=== PATIENT | female | born 1990 | race American Indian/Alaskan Native ===

== ENCOUNTER 2017-09-21 18:23 | Emergency (ER) | payer SELFPAY ==
[2017-09-21] MEDS ORDERED: NACL 0.9% 1000 ML 1,000 ML IV ONE (19:27)
[2017-09-21] MEDS ORDERED: COMPAZINE IV ONE (19:28)
[2017-09-21 19:33] LABS: Basophils # (Auto) 0.1 K/mm3 (0.0-0.1); Basophils % (Auto) 0.5 % (0.0-1.8); Eosinophils # (Auto) 0.1 K/mm3 (0.0-0.4); Eosinophils % (Auto) 0.5 % (0.0-4.3); Hematocrit 41.9 % (30.3-42.9); Hemoglobin 13.2 gm/dl (10.1-14.3); Lymphocytes % (Auto) 14.1 % (13.4-35.0); Mean Corpuscular HGB Conc 32 % (30-34); Mean Corpuscular Volume 76 fl (79-97); Monocytes # (Auto) 0.7 K/mm3 (0.0-0.8); Monocytes % (Auto) 4.8 % (0.0-7.3); Platelet Count 172 K/mm3 (140-440); Red Blood Count 5.53 M/mm3 (3.65-5.03); Red Cell Distribution Width 16.5 % (13.2-15.2)
[2017-09-21 19:34] LABS: Mean Corpuscular Hemoglobin 24 pg (28-32)
[2017-09-21 19:48] LABS: BUN/Creatinine Ratio 12; Blood Urea Nitrogen 11 mg/dL (7-17); Calcium 8.2 mg/dL (8.4-10.2); Hemolysis Index 3
--- NOTE | 2017-09-21 20:08 | Emergency Department Report ---
ED Syncope HPI - General Chief Complaint: Dizziness Stated Complaint: SYNCOPE Time Seen by Provider: 09/21/17 19:18 - History of Present Illness Initial Comments: Patient woke up this morning feeling like her normal self. She gave plasma at the [facility] today. Afterwards, the patient started to feel lightheaded and weak. While at work, patient collapsed onto the ground and passed out momentarily after feeling warm and having tunnel vision. She came to the ER to get checked out. Patient does not take any medications. - Related Data Allergies/Adverse Reactions: Allergies No Known Allergies Allergy (Unverified 09/21/17 18:54) ED Review of Systems ROS: Stated complaint: SYNCOPE Other details as noted in HPI Comment: All other systems reviewed and negative Constitutional: weakness Neurological: other (dizziness) ED Past Medical Hx - Past Medical History Previous Medical History?: No Additional medical history: A-FIB - Surgical History Hx Appendectomy: Yes Additional Surgical History: TONSILS REMOVED, CANCER CELLS REMOVED FROM STOMACH - Social History Smoking Status: Current Every Day Smoker Substance Use Type: Alcohol, Marijuana ED Physical Exam - General Limitations: No Limitations General appearance: alert, in no apparent distress - Head Head exam: Present: atraumatic, normocephalic - Eye Eye exam: Present: normal appearance - ENT ENT exam: Present: mucous membranes moist - Neck Neck exam: Present: normal inspection - Respiratory Respiratory exam: Present: normal lung sounds bilaterally. Absent: respiratory distress - Cardiovascular Cardiovascular Exam: Present: regular rate, normal rhythm. Absent: systolic murmur, diastolic murmur, rubs, gallop - GI/Abdominal GI/Abdominal exam: Present: soft, normal bowel sounds. Absent: tenderness - Extremities Exam Extremities exam: Present: normal inspection - Back Exam Back exam: Present: normal inspection - Neurological Exam Neurological exam: Present: alert, oriented X3 - Psychiatric Psychiatric exam: Present: normal affect, normal mood - Skin Skin exam: Present: warm, dry, intact, normal color. Absent: rash ED Course Vital Signs 09/21/17 09/21/17 09/21/17 18:49 19:00 20:00 Temperature 98.7 F 98.4 F Pulse Rate 82 88 84 Respiratory 17 14 16 Rate Blood Pressure 127/74 103/79 Blood Pressure 103/79 [Left] O2 Sat by Pulse 99 100 100 Oximetry 09/21/17 09/21/17 20:01 21:00 Temperature Pulse Rate 83 71 Respiratory 19 16 Rate Blood Pressure 121/75 119/62 Blood Pressure [Left] O2 Sat by Pulse 99 98 Oximetry ED Medical Decision Making - Lab Data Result diagrams: 09/21/17 19:12 09/21/17 19:12 - EKG Data -: EKG Interpreted by Me EKG shows normal: sinus rhythm, axis, intervals, QRS complexes, ST-T waves Rate: normal - EKG Data Interpretation: no acute changes - Medical Decision Making 27-year-old female with no significant past medical history that presents to the ER with syncope. Vital signs are stable on presentation. Patient is well- appearing. Lab work shows leukocytosis of 14 with mild left shift. The rest of her lab work and urine are unremarkable. EKG is nonischemic. Patient was given a headache cocktail, which did make her feel better. Patient has no evidence of meningismus. I told her to go home to continue to hydrate and rest. Low suspicion for emergent pathology at this point in time. Cleared for discharge. - Differential Diagnosis arrythmia, vasovagal syncope, dehydration, electrolyte abnormality Critical care attestation.: If time is entered above; I have spent that time in minutes in the direct care of this critically ill patient, excluding procedure time. ED Disposition Clinical Impression: Syncope, Headache Disposition: DC-01 TO HOME OR SELFCARE Is pt being admited?: No Does the pt Need Aspirin: No Condition: Stable Instructions: Syncope (ED) Additional Instructions: Make sure that you drink plenty of water and get rest over the next 24 hours. Referrals: PRIMARY CARE, [Primary Care Provider] - 3-5 Days
[2017-09-21 20:17] LABS: Bilirubin,Urine NEG (Negative); Blood,Urine NEG (Negative); Color,Urine Yellow (Yellow); Protein,Urine <15 mg/dL mg/dL (Negative); Urobilinogen,Urine < 2.0 mg/dL (<2.0); WBC,Urine < 1.0 /HPF (0.0-6.0)
[2017-09-21 20:21] LABS: HCG Qualitative,Urine Negative (Negative)
[2017-09-21] MEDS ORDERED: TORADOL IV ONE (20:37)
[2017-09-21] MEDS ORDERED: TYLENOL PO ONE (20:37)
[2017-09-21] MEDS ORDERED: HALDOL IV ONE (21:13)
[2017-09-21] MEDS ORDERED: DECADRON IV ONE (21:13)
[2017-09-21 21:23] VITALS: BP 119/62
== END 2017-09-21 22:25 | disposition home or self-care (01) ==
LOC: ED 18:23
DX: R55 Syncope and collapse (principal); R51 Headache; R42 Dizziness and giddiness; F17.200 Nicotine dependence, unspecified, uncomplicated; F12.10 Cannabis abuse, uncomplicated
CPT/HCPCS: 36415; 80048; 81001; 81025; 85025; 93005; 93010; 96361; 96374; 96375; 99284; J0780; J1100; J1630; J1885; J7030